=== PATIENT | male | born 1960 | race Caucasian/White ===

== ENCOUNTER 2017-04-04 16:53 | Emergency (ER) | payer SELFPAY ==
[~2017-04-04] VITALS: Ht 162.6 cm; Wt 63.5 kg
[2017-04-04 17:10] VITALS: BP 134/87
--- NOTE | 2017-04-04 17:16 | NUR ---
NO ACUTE DISTRESS; AMBULATORY; MILD ASSISTANCE PROVIDED - WHEELED TO THE SHOWER ROOM.
== END 2017-04-04 17:49 | disposition home or self-care (01) ==
LOC: ER 16:54
DX: F10.129 Alcohol abuse with intoxication, unspecified (principal); Z59.0 Homelessness
CPT/HCPCS: A4606; Z7610

== ENCOUNTER → 2017-04-04 | Emergency (ER) | payer SELFPAY | END | disposition left against medical advice (07) | LOC: ER 14:46 | DX: Z53.21 Procedure and treatment not carried out due to patient leaving prior to being seen by health care provider (principal) ==